=== PATIENT | female | born 1995 | race Caucasian/White ===

== ENCOUNTER 2019-11-29 15:21 | Outpatient (RCR) | payer MEDICAID, SELFPAY ==
[2019-11-29 17:03] LABS: Basophils Percent Auto 0.2 % (0.2-1.2); Eosinophils Absolute Auto 0.2 K/mm3 (0-0.3); Eosinophils Percent Auto 1.4 % (0-4.4); Hematocrit 28.3 % (37.0-47.0); Hemoglobin 9.6 g/dL (12.0-15.0); Immature Granulocyte Absolute 0.15 K/mm3 (0.00-0.031); Immature Granulocyte Percent A 1.2 % (0-0.5); Lymphocytes Absolute Auto 1.74 K/mm3 (0.9-3.2); Lymphocytes Percent Auto 13.5 % (18.3-44.2); Mean Corpuscular HGB Conc 33.9 g/dl (32-36); Mean Corpuscular Hemoglobin 31.4 pg (26-34); Mean Corpuscular Volume 92.5 fl (80-100); Mean Platelet Volume 9.2 fl (7.4-10.4); Monocytes Percent Auto 8.1 % (2.6-8.5); Neutrophils Absolute Auto 9.7 K/mm3 (1.3-6.7); Neutrophils Percent Auto 75.6 % (45.5-73.1); Platelet Count Result 215 k/mm3 (150-375); Red Blood Count 3.06 M/mm3 (4.2-5.4); Red Cell Distribution Width 12.6 % (11.5-14.5); White Blood Count 12.9 K/mm3 (4.5-10.0)
[2019-11-29 17:20] LABS: Glucose 1 Hour PP 50gm Dose 140 mg/dL
[2019-11-29 17:57] LABS: Hepatitis B Surface Antigen Negative (Negative); Rubella IgG Antibody 12.4 IU/ML
[2019-11-29 18:01] LABS: HIV 1/2 Ab P24 Ag Result Negative (Negative)
[2019-11-29 18:12] LABS: Vitamin D 25 Hydroxy 42.9 ng/mL
[2019-11-30 07:30] LABS: Rapid Plasma Reagin Non-Reactive (NonReactive)
== END 2020-02-27 23:59 | disposition home or self-care (01) ==
LOC: ANHLAB 15:21
PROVIDERS: PCP Internal Medicine; Visit Provider Obstetrics & Gynecology Gynecology
DX: Z34.93 Encounter for supervision of normal pregnancy, unspecified, third trimester (principal); Z11.4 Encounter for screening for human immunodeficiency virus [HIV]
CPT/HCPCS: 36415; 82306; 82947; 83036; 85025; 86592; 86703; 86762; 86850; 86900; 86901; 87340; G0432

== ENCOUNTER 2019-12-02 10:47 | Outpatient (CLI) | payer MEDICAID, SELFPAY ==
--- NOTE | ~2019-12-02 | US_ITS ---
EXAMINATION: US OB /maternal detail DATE: 12/02/2019 12:39 INDICATION: survey. TECHNIQUE: Multiple obstetric sonographic images performed. FINDINGS: No prior studies for comparison. There is a single living fetus in vertex presentation. The placenta is anterior without placenta pre via. Amniotic fluid volume is normal. LULA measures 17.2 cm. cardiac activity and movement is noted with a heart rate of 145 beats per minute. The following anatomy was identified as normal: 4 chamber heart 3 vessel cord cord insertion kidneys urinary bladder stomach diaphragm The intracranial structures and spine are not well visualized due to advanced gestational age and fet al lie. The following biometric data were obtained: BPD: 72mm corresponds to gestational age 29 weeks 0 days. Head circumference: 264 mm corresponds to gestational age 28 weeks 5 days. Abdominal circumference: 233 mm corresponds to gestational age 27 weeks 4 days. Femur length: 50 mm corresponds to gestational age 27 weeks 1 days. Head circumference to abdominal circumference ratio: 1.13 (normal range for expected gestational age is 1.02-1.21). Estimated weight: 1107 grams +/- 166 grams using Hadlock method. IMPRESSION: 1: Single living intrauterine with an estimated gestational age of 28weeks 1days by current ultrasound measurements, with an EDC of 02/23/2020 in vertex presentation. 2. Limited survey for evaluation of intracranial structures and spine due to advanced gestational ag e and lie. The remainder of the survey is unremarkable. Reviewed, dictated and finalized at location A. IMPRESSION: 1: Single living intrauterine with an estimated gestational age of 28 weeks 1days by current ultrasound measurements, with an EDC of 02/23/2020 in puneet margarita presentation. 2. Limited survey for evaluation of intracranial structures and spine due to a dvanced gestational age and lie. The remainder of the survey is unremarka ble.
== END 2019-12-02 10:48 | disposition home or self-care (01) ==
PROVIDERS: PCP Internal Medicine; Visit Provider Obstetrics & Gynecology Gynecology
DX: Z36.89 Encounter for other specified antenatal screening (principal); Z3A.28 28 weeks gestation of pregnancy
CPT/HCPCS: 76805

== ENCOUNTER 2019-12-03 07:55 | Outpatient (CLI) | payer MEDICAID, SELFPAY ==
[2019-12-03 08:24] LABS: Glucose Fasting Gestational 101 mg/dL (>/=95)
[2019-12-03 09:46] LABS: Glucose 1 Hour Gest 141 mg/dL (>/=180)
[2019-12-03 10:50] LABS: Glucose 2 Hour Gest 116 mg/dL (>/= 155)
[2019-12-03 11:45] LABS: Glucose 3 Hour Gest 116 mg/dL (>/=140)
== END 2019-12-03 07:56 | disposition home or self-care (01) ==
PROVIDERS: PCP Internal Medicine; Visit Provider Obstetrics & Gynecology Gynecology
DX: R79.9 Abnormal finding of blood chemistry, unspecified (principal)
CPT/HCPCS: 36415; 82951; 82952

== ENCOUNTER 2020-02-16 10:09 | Inpatient (IN) | payer OTHER, SELFPAY ==
[2020-02-16] VITALS (46 sets, daily range): BP systolic 72–140; BP diastolic 22–98; PULSE 25–151; RESP 14–18; TEMP 36–36.6; O2SAT 80–100; BMI 23.6
--- NOTE | 2020-02-16 09:08 | PM.IMHP ---
H&P: HPI History of Present Illness Chief complaint: previous Narrative: Ruchi Chowdhury is a 24 year old @ [address] Mendoza. Scant PNC complicated by csection x 2, gestational DM, MJ use, anxiety and adhd. PMFSH Past Medical History Medical History ADHD Anxiety Fibromyalgia Surgical History Surgical History H/O: Family History Family History Mother Bipolar 1 disorder Congestive heart failure Fibromyalgia Social History Social History Smoking status: Unknown if ever smoked Substance use: never Gender identity (if verbalized by the patient): Female Spiritual care concerns: No Meds Home Medications and Allergies Home Medications Medication Instructions Recorded Confirmed Type PNV cmb#95-ferrous fumarate-FA 1 tablet PO DAILY 01/28/20 02/16/20 History [] clonazepam [Klonopin] 0.5 mg PO DAILY 01/28/20 02/16/20 History cyclobenzaprine 10 mg PO TID PRN 01/28/20 02/16/20 History ferrous sulfate [Iron (ferrous 325 mg PO DAILY 01/28/20 02/16/20 History sulfate)] Allergies Allergy/AdvReac Type Severity Reaction Status Date / Time terbutaline Allergy Palpitation Verified 01/28/20 13:39 s acetaminophen [From Percocet] AdvReac Nausea and Verified 01/28/20 13:39 Vomiting oxycodone [From Percocet] AdvReac Nausea and Verified 01/28/20 13:39 Vomiting Exam GI: Other: Gravid uterus Assessment and Plan Assessment and plan (1) H/O: : Code(s): Z98.891 - History of uterine scar from previous surgery Status: Acute Assessment and Plan: Scheduled for a repeat csection. Risk and benefits reviewed with patient.
--- NOTE | 2020-02-16 11:01 | LDADM ---
This patient, Ruchi Chowdhury, was admitted to Labor/Delivery/Recovery 119 on 02/16/20 at 10:09. Plans for labor, pain management and were discussed with patient. Patient/family oriented to hospital policies and general routines including ID bracelet, bed and alarms, visiting hours, pain management, procedures, bathroom and other care routines, personal items, smoking policy, room service/diet and guest tray routines, infant security routines, and visiting hours. Patient/Family are encouraged to report perceived risks to care and to ask questions if they do not understand what they are told or what they should do. See OBIX for further documentation.
[2020-02-16] MEDS: LACTATED RINGERS 1,000 ML 125 ML IV CONT (11:04)
--- NOTE | 2020-02-16 11:10 | WPDANESEPPF ---
Anes - Initial Pre Proc Eval Procedure: Operation Date: 02/16/20 12:00 Proposed Procedures p Repeat Section - Cornel Trinh MD Date/Time: 02/16/20 11:10 Surgeon: Cornel Trinh MD Pre Op Diagnosis: previous Patient Data Age: 24 Gender: F Height: 4 ft 11 in Weight: 53 kg Last Vital Signs Pulse 92 02/16/20 10:58 BP 122/73 02/16/20 10:58 Allergies Allergy/AdvReac Type Severity Reaction Status Date / Time terbutaline Allergy Palpitation Verified 01/28/20 13:39 s acetaminophen [From Percocet] AdvReac Nausea and Verified 01/28/20 13:39 Vomiting oxycodone [From Percocet] AdvReac Nausea and Verified 01/28/20 13:39 Vomiting Home Medications Medication Instructions Recorded Confirmed Type PNV cmb#95-ferrous fumarate-FA 1 tablet PO DAILY 01/28/20 02/16/20 History [] clonazepam [Klonopin] 0.5 mg PO DAILY 01/28/20 02/16/20 History cyclobenzaprine 10 mg PO TID PRN 01/28/20 02/16/20 History ferrous sulfate [Iron (ferrous 325 mg PO DAILY 01/28/20 02/16/20 History sulfate)] Patient hx anesthesia problems: none Family hx anesthesia problems: none PMFSH Past Medical History Medical History ADHD Anxiety Fibromyalgia Surgical History Surgical History H/O: Family History Family History Mother Bipolar 1 disorder Congestive heart failure Fibromyalgia Social History Social History Smoking status: Unknown if ever smoked Substance use: never Gender identity (if verbalized by the patient): Female Spiritual care concerns: No Anes - Eval Final PreProcedure Day of Procedure 02/16/20 11:10 Patient weight: normal Heart: regular rate and rhythm Lungs: clear to auscultation Airway: Mallampati scale class II Neurological: alert and oriented Last oral intake: >/= 8 hours ASA classification: III Emergent: no Anesthesia type and monitoring: regional spinal and standard monitoring Informed Consent: The patient's anesthetic plan and its attendant risks and benefits were discussed with the patient/family/POA. Questions were solicited and answers provided to the satisfaction of the patient/family/POA.
[2020-02-16 11:13] LABS: Basophils Percent Auto 0.3 % (0.2-1.2); Eosinophils Absolute Auto 0.1 K/mm3 (0-0.3); Eosinophils Percent Auto 1.1 % (0-4.4); Hematocrit 33.1 % (37.0-47.0); Hemoglobin 11.2 g/dL (12.0-15.0); Immature Granulocyte Percent A 0.9 % (0-0.5); Lymphocytes Percent Auto 15.5 % (18.3-44.2); Mean Corpuscular HGB Conc 33.8 g/dl (32-36); Mean Corpuscular Hemoglobin 31.2 pg (26-34); Mean Corpuscular Volume 92.2 fl (80-100); Mean Platelet Volume 9.8 fl (7.4-10.4); Monocytes Absolute Auto 1.1 K/mm3 (0.1-0.6); Monocytes Percent Auto 9.8 % (2.6-8.5); Neutrophils Absolute Auto 8.4 K/mm3 (1.3-6.7); Neutrophils Percent Auto 72.4 % (45.5-73.1); Platelet Count Result 210 k/mm3 (150-375); Red Blood Count 3.59 M/mm3 (4.2-5.4); Red Cell Distribution Width 12.5 % (11.5-14.5); White Blood Count 11.6 K/mm3 (4.5-10.0)
[2020-02-16 11:50] LABS: Glucose Point of Care 75 (65-105)
[2020-02-16] MEDS: ceFAZolin 2 GM/D5W 50 ML 2 GM/50 ML BAG IVPB (12:05)
[2020-02-16 12:38] LABS: Barbiturate Screen Urine Negative (Negative); Benzodiazepines Screen Urine Negative (Negative)
--- NOTE | 2020-02-16 12:57 | PM.OBPRVD ---
OB - Delivery Note Procedure Delivery date: 02/16/20 Procedure: Procedures Operation Date: 02/16/20 12:00 <No data on this case meets the specified criteria> events: Previous Intrapartal events: None Route of delivery: Estimated blood loss (mL): 310 Anesthesia type: Spinal Disposition: observation Baby Date of : 02/16/20 Time of : 12:25 Weeks of gestation at delivery: 39 gender: Male Weight (pounds): 7 Weight (ounces): 2 presentation: vertex position: Left Occiput Anterior Placenta delivery description: Spontaneous cord vessel description: 3 Vessels and Nuchal Cord score one minute: 8 score five minutes: 9
[2020-02-16 13:03] LABS: Amphetamine Screen Urine Negative (Negative); Cannabinoid Screen Urine Negative (Negative); Cocaine Screen Urine Negative (Negative); Methadone Screen Urine Negative (Negative); Opiate Screen Urine Negative (Negative); Phencyclidine Screen Urine Negative (Negative)
[2020-02-16] MEDS: OXYTOCIN 30 UNITS/NS 500 ML 30 UNITS/500 ML BAG 125 UNITS IV CONT (13:28)
[2020-02-16] MEDS: KETOROLAC 30 MG/ML VIAL (*BKC) IV PUSH (14:33)
[2020-02-16] MEDS: diphenhydrAMINE HCl INJ 50 MG/ML VIAL 25 MG IV PUSH (16:15)
--- NOTE | 2020-02-16 17:53 | OP_ITS ---
DATE OF PROCEDURE: 02/16/2020 PREOPERATIVE DIAGNOSES: 1. Repeat section. 2. Desires permanent sterilization. POSTOPERATIVE DIAGNOSIS: 1. Repeat section. 2. Desires permanent sterilization. PROCEDURE PERFORMED: Low-transverse section. ANESTHESIA: Spinal. COMPLICATIONS: None. ESTIMATED BLOOD LOSS: 210 cc. FINDINGS: Grossly normal uterus, tubes, and ovaries. Male infant, vertex presentation, Apgars 8 and 9. Weight 7 pounds 2 ounces. Nuchal cord x1. DESCRIPTION OF PROCEDURE: The patient was taken to the operating room with IV running. She was prepped and draped in normal sterile fashion, placed in the supine position with a leftward tilt. After spinal epidural was administered, the patient was found to be adequate. A Pfannenstiel skin incision was then made with a scalpel, carried down to the underlying layer of fascia. The fascial incision was then extended bilaterally with Stroud scissors. Superior aspect of the incision was grasped with Venus clamps, elevated, dissected off the rectus muscle. The inferior aspect of the incision was grasped and dissected off the rectus muscles. Rectus muscles were in the midline with the Pean. The peritoneum was entered and grasped with Peans and entered sharply with Metzenbaum scissors and the peritoneum was extended bluntly. The bladder blade was inserted. Vesicouterine peritoneum was grasped with Pean and entered sharply with Metzenbaum scissors and reflected the bladder off the uterus more in segment. The bladder blade was reinserted. Lower uterine segment was incised in a transverse fashion. This incision was extended bluntly. The head was delivered atraumatically. Cord was clamped and cut. These were handed off to the waiting nurse. Cord blood and cord gases were obtained. Placenta delivered spontaneously. The uterus was exteriorized of all clots and debris. The uterine was then exteriorized and the uterus was closed with 0 Monocryl in a running locked fashion. Hemostasis was assured. Attention was then turned to the right fallopian tube was grasped with Gonzalo, transected and suture ligated with 0 chromic suture. The same procedure was performed on the left tube, which was grasped with a Gonzalo, transected, and suture ligated with 0 Vicryl suture. The uterine incision was reexamined. Hemostasis was assured. The uterus was returned to the abdomen. Gutters cleared of all clots and debris. The uterine incision was covered with Interceed in a T-fashion. Examined muscles noted hemostatic. The fascia was closed with 0 Vicryl in a running fashion. Subcutaneous tissue was irrigated. Hemostasis assured. The skin was closed with 4-0 Vicryl on a Freedom needle. The incision was covered with Dermabond. Sponge, lap, needle counts were correct x2. Patient received 2 g Ancef prior to skin incision. D I MT: Eugenio
[2020-02-16] MEDS: DEXTROSE 5%/0.45% SOD CHL 1,000 ML 125 ML IV CONT (18:15)
[2020-02-16] MEDS: SIMETHICONE 80 MG TAB.CHEW PO (23:28)
[2020-02-17 01:16] VITALS: BP 120/68; PULSE 88; PULSE 93; RESP 16; RESP 18; TEMP 36.8; O2SAT 100
[2020-02-17 05:45] VITALS: PULSE 93; RESP 18; O2SAT 100
[2020-02-17] MEDS: IBUPROFEN 600 MG TABLET PO ×3 (05:46→23:32)
[2020-02-17 06:20] LABS: Basophils Percent Auto 0.2 % (0.2-1.2); Eosinophils Absolute Auto 0.2 K/mm3 (0-0.3); Eosinophils Percent Auto 1.1 % (0-4.4); Hematocrit 28.7 % (37.0-47.0); Hemoglobin 9.8 g/dL (12.0-15.0); Immature Granulocyte Percent A 0.6 % (0-0.5); Lymphocytes Absolute Auto 1.81 K/mm3 (0.9-3.2); Lymphocytes Percent Auto 11.6 % (18.3-44.2); Mean Corpuscular HGB Conc 34.1 g/dl (32-36); Mean Corpuscular Hemoglobin 31.2 pg (26-34); Mean Corpuscular Volume 91.4 fl (80-100); Mean Platelet Volume 9.7 fl (7.4-10.4); Monocytes Absolute Auto 1.1 K/mm3 (0.1-0.6); Monocytes Percent Auto 6.8 % (2.6-8.5); Neutrophils Absolute Auto 12.4 K/mm3 (1.3-6.7); Neutrophils Percent Auto 79.7 % (45.5-73.1); Platelet Count Result 202 k/mm3 (150-375); Red Blood Count 3.14 M/mm3 (4.2-5.4); Red Cell Distribution Width 12.4 % (11.5-14.5); White Blood Count 15.5 K/mm3 (4.5-10.0)
[2020-02-17 08:40] VITALS: BP 105/70; PULSE 99; RESP 16; TEMP 37.1; O2SAT 99
[2020-02-17] MEDS: MULTIVIT/MIN/PREN/FOL AC/IRON TABLET 1 TAB PO (09:18)
[2020-02-17] MEDS: DOCUSATE SODIUM 100 MG CAPSULE PO ×2 (09:19→16:45)
[2020-02-17] MEDS: POLYSACCHARIDE IRON COMPLEX 150 MG CAPSULE PO ×2 (09:19→16:45)
--- NOTE | 2020-02-17 10:33 | WPDANLDPN2 ---
Anes-Prog Note L&D Date/Time: 02/17/20 10:33 Comfortable throughout: section Neuraxial method: spinal Epidural/Spinal procedure site: clean & non-tender Neuro status: Neuro function grossly intact. Cardiovascular status: normal Respiratory status: normal Airway patency: baseline Mental status: baseline Post-Op hydration status: normal Vital Signs: Last Vital Signs Temp 37.1 C 02/17/20 08:40 Pulse 99 02/17/20 08:40 Resp 16 02/17/20 08:40 BP 105/70 02/17/20 08:40 Pulse Ox 99 02/17/20 08:40 I/O: Intake & Output 02/16/20 02/17/20 02/17/20 23:59 07:59 15:59 Intake Total 480 500 Output Total 800 1625 Balance -320 -1125 Post-procedural complaints: none Patient feedback: Patient satisfied with anesthetic care.
--- NOTE | 2020-02-17 10:33 | WPDANLDNPN2 ---
Anes-Prog Note L&D-Neuraxial Date/Time: 02/17/20 10:33 Neuraxial medications: intrathecal PF morphine Opiod-related complaints: none Patient feedback: Patient satisfied with post-operative pain management.
[2020-02-17 11:45] VITALS: BP 103/64; PULSE 102; RESP 18; TEMP 37.1; O2SAT 97
[2020-02-17 12:45] LABS: Rapid Plasma Reagin Non-Reactive (NonReactive)
--- NOTE | 2020-02-17 12:48 | PM.OBPNVD ---
OB - PN: Subj Subjective Date/time seen: 02/17/20 12:48 S: doing well no complaints OB - PN: Obj Data Labs CBC & Chem 7: 02/17/20 05:58 Labs: Laboratory Results - last 24 hr 02/16/20 02/16/20 02/17/20 10:50 11:39 05:58 WBC 15.5 H RBC 3.14 L Hgb 9.8 L Hct 28.7 L MCV 91.4 MCH 31.2 MCHC 34.1 RDW 12.4 Plt Count 202 MPV 9.7 Immature Gran % (Auto) 0.6 H Neut % (Auto) 79.7 H Lymph % (Auto) 11.6 L [place] % (Auto) 6.8 Eos % (Auto) 1.1 Baso % (Auto) 0.2 Lymph # (Auto) 1.81 [place] # (Auto) 1.1 H Eos # (Auto) 0.2 Baso # (Auto) 0.0 Abs Immat Gran (auto) 0.10 H Absolute Neuts (auto) 12.4 H Absolute Nucleated RBC 0.0 Nucleated RBC % 0.0 Urine Opiates Screen Negative Urine Methadone Screen Negative Ur Phencyclidine Scrn Negative Ur Amphetamine Screen Negative Urine Cocaine Screen Negative U Cannabinoids Screen Negative RPR Non-reactive OB - PN A/P Assessment and Plan (1) H/O: : Code(s): Z98.891 - History of uterine scar from previous surgery Status: Acute Time Spent With Patient Time: Total time spent is greater than 50% in coordination of care (as documented) at patient's floor/unit and/or counseling patient: continue with pp care. Exam GI: Other: incision clean dry and intact
--- NOTE | 2020-02-17 14:07 | PC.NURSE ---
Consult with pt., mother has latched correctly/deeply to breast, is nursing eagerly with long draws and occasional swallowing noted. Mother reports she will only breastfeed for colostrum while in the hospital and switches to formula when home, as she did with other 2 children. Mother states she does not wish to continue with and does not want further education.
[2020-02-17] MEDS: SIMETHICONE 80 MG TAB.CHEW PO (16:45)
[2020-02-17 19:00] VITALS: BP 131/89; PULSE 111; RESP 16; TEMP 36.7
[2020-02-18 08:30] VITALS: BP 134/73; PULSE 102; RESP 16; TEMP 36.7; O2SAT 100
[2020-02-18] MEDS: IBUPROFEN 600 MG TABLET PO (09:09)
[2020-02-18] MEDS: MULTIVIT/MIN/PREN/FOL AC/IRON TABLET 1 TAB PO (09:10)
[2020-02-18] MEDS: POLYSACCHARIDE IRON COMPLEX 150 MG CAPSULE PO (09:10)
[2020-02-18] MEDS: DOCUSATE SODIUM 100 MG CAPSULE PO (09:10)
--- NOTE | 2020-02-18 11:00 | PC.NURSE ---
Consult with pt., mother reports she is switching to bottle feeding stating is having difficulties with bottle feeding. Reviewed bottle feeding to allow infant to be in an upright position and to allow to take slowly removing if needed.
--- NOTE | 2020-02-18 12:15 | PC.NURSE ---
Patient instructed on viewing the discharge video Mother & Baby Care, The First Two Weeks . Patient was given the opportunity and encouraged to ask questions. Patient verbalized understanding of information shared and has been given the mother/baby guide for home reference.
--- NOTE | 2020-02-18 13:05 | PC.NURSE ---
Upon discharging the patient, the HUMAN RESOURCE ASSISTANT walked the patient to the car via wheelchair. The patient's was awaiting the patient at the [facility] entrance in their van. The HUMAN RESOURCE ASSISTANT felt concern that there were no seats in the middle of the van, no carseats for the other children, and only the bench seat at the rear of the van. The father appeared to be tightening the infant carseat with the seat belts at the back of the van but the HUMAN RESOURCE ASSISTANT was unable to verify that it was tightened appropriately because the van doors were broken and would not open. The HUMAN RESOURCE ASSISTANT thought perhaps the family was living in their van. The OB director and the 2nd floor charge nurse were notified.
--- NOTE | 2020-03-08 13:49 | PM.OBDSVD ---
DS: Admitting Diagnosis Admitting Diagnosis Admitting Diagnosis: Encounter for supervision of normal , unspecified, third trimester OB - DS: Summary OB Procedures : Ultrasound OB Procedures Intrapartum: and Tubal ligation OB Procedures: : None Peripartum Data Delivery Method: Section Procedures: Procedures Operation Date: 02/16/20 12:00 Actual Procedures Side Surgeon p Repeat Section Cornel Trinh MD complications: none Time Spent with Patient Time attestation: Total time spent providing and/or coordinating discharge services: DS: Data Data Completed and Pending Completed studies during hospitalization: Pending at discharge 02/16/20 13:19 Surgical [PTH] Routine Discharge Plan Discharge Attending physician on discharge: Cornel Trinh Consulting providers: Lester Hollingsworth Discharging Clinician: Cornel Trinh Patient Disposition: Home, Self-Care Activity: may shower, follow weight bearing status and pelvic rest Diet: as tolerated Discharge Instructions: Education: Mom and Baby Guide and Preeclampsia Handout Given to: Mother Follow-Up: Call your delivering provider's office for an appointment to be seen in: 1 Week Mom and baby should come to the [facility] for the follow-up appointment. Appointment Date/Time: February 21, 2020 at 11:00 am What to expect at your follow-up visit: Physical Assessment Call [phone] if you are unable to keep your appointment time. BREAST CARE: 1. Wear a snug supportive bra. 2. For engorgement discomfort: Breast Feeding: A. Apply warm moist washcloths B. Express milk as needed to relieve engorgement C. Wear loose clothing Bottle Feeding: A. May apply ice packs 3. For sore nipples: A. Identify correct latch-on B. Apply warm moist washcloths before and after nursing C. Air dry nipples after nursing D. May apply Lansinoh cream to nipples ABDOMINAL INCISION: (if applicable) 1. Allow incision to air dry 2. Do NOT use lotions for powders on your incision 3. When showering, allow soap and water to run over the incision, but do not wash incision EPISIOTOMY/PERINEAL CARE: 1. Until bleeding stops, use your tisha bottle after urinating 2. Change your pad frequently throughout the day 3. No tub baths until seen by your physician - You may shower ACTIVITY: 1. Rest as much as possible. 2. Do not exercise or lift anything heavier than your baby (such as laundry or other children.) 3. Avoid stairs or driving as much as possible. 4. Do not put anything into the vagina. No douching, tampons, or sexual activity until seen by physician. NOTIFY PHYSICIAN IF YOU HAVE ANY QUESTIONS OR IF ANY OF THE FOLLOWING SYMPTOMS OCCUR: 1. If your incision becomes red, swollen, or more painful than what you have experienced in the hospital. 2. If your vaginal bleeding becomes foul smelling. 3. If your vaginal bleeding becomes more heavy than a period or if your bleeding changes from pink to bright red. However, you may pass an occasional walnut-sized clot once or twice for the first week . 4. If you experience a sharp, shooting pain in you calves. 5. If you discover a hard, reddened area on your breast or if you experience flu-like symptoms. DIET: 1. Eat regular, well-balanced meals. 2. Drink plenty of fluids daily. If , drink to thirst. Stand Alone Forms: General Discharge Information Follow-up/Referrals: Cornel Trinh MD [Physician] - Discharge Medications: New hydrocodone-ibuprofen 7.5-200 mg Tablet 1 tab PO Q8H PRN (Reason: Pain Rated 4-6) Qty: 30 RF: 0 Continued prenat.vits,justin,[id number] Tablet 1 tablet PO DAILY RF: 0 clonazepam [Klonopin] 0.5 mg Tablet 0.5 mg PO DAILY RF: 0 ferrous sulfate [Iron (ferrou
== END 2020-02-18 13:05 | disposition home or self-care (01) | DRG 540 ==
LOC: ANHLDR 11:51 → ANHOB2 15:52
PROVIDERS: Admitting Provider Obstetrics & Gynecology; PCP Internal Medicine; Visit Provider Obstetrics & Gynecology
PROC: 10D00Z1 Extraction of Products of Conception, Low, Open Approach (ICD-10-PCS; CPT 59514; principal; 2020-02-16 12:00)
DX: O34.211 Maternal care for low transverse scar from previous cesarean delivery (principal); Z37.0 Single live birth; Z3A.39 39 weeks gestation of pregnancy; O24.429 Gestational diabetes mellitus in childbirth, unspecified control; O99.344 Other mental disorders complicating childbirth; F90.9 Attention-deficit hyperactivity disorder, unspecified type; F41.9 Anxiety disorder, unspecified; O99.89 Other specified diseases and conditions complicating pregnancy, childbirth and the puerperium; M79.7 Fibromyalgia; O99.324 Drug use complicating childbirth; F12.90 Cannabis use, unspecified, uncomplicated; O69.81X0 Labor and delivery complicated by cord around neck, without compression, not applicable or unspecified; Z30.2 Encounter for sterilization
CPT/HCPCS: 36415; 80307; 85025; 86592; 86850; 86900; 86901; 88302; 88307; A9270; J0131; J0690; J1200; J1885; J2370; J2590; J7120